=== PATIENT | female | born 1945 | race Two or more races ===

== ENCOUNTER 2023-11-12 06:11 | Emergency (ER) | payer OTHER, MEDICAID ==
[~2023-11-12] VITALS: Ht 157.5 cm; Wt 68.4 kg
[2023-11-12 08:14] VITALS: BP 141/57; PULSE 81; RESP 18; TEMP 97.3; O2SAT 98
== END 2023-11-12 08:17 | disposition home or self-care (01) ==
LOC: ER 06:11
DX: S00.83XA Contusion of other part of head, initial encounter (principal); I10 Essential (primary) hypertension; E11.9 Type 2 diabetes mellitus without complications; Z86.73 Personal history of transient ischemic attack (TIA), and cerebral infarction without residual deficits; W01.198A Fall on same level from slipping, tripping and stumbling with subsequent striking against other object, initial encounter; Y93.01 Activity, walking, marching and hiking; Y92.091 Bathroom in other non-institutional residence as the place of occurrence of the external cause; Y99.8 Other external cause status
CPT/HCPCS: 70450

== ENCOUNTER 2024-02-15 13:20 | Emergency (ER) | payer OTHER, MEDICAID ==
[~2024-02-15] VITALS: Ht 160 cm; Wt 69.7 kg
[2024-02-15 14:05] VITALS: BP 162/71; RESP 18; O2SAT 95
[2024-02-15 14:18] LABS: Basophils # (auto) 0 10 ^3/uL (0-0.2); Basophils % (auto) 0.4 % (0.0-2.0); Eosinophils # (auto) 0.1 10 ^3/uL (0-0.8); Eosinophils % (auto) 0.9 % (0.0-7.0); Hematocrit 44.1 % (36.0-46.0); Hemoglobin 15.2 g/dL (12.2-16.2); Lymphocytes # (auto) 1.8 10 ^3/uL (0.4-5.4); Lymphocytes % (auto) 22.1 % (10.0-50.0); Mean Corpuscular Hemoglobin 32.2 pg (28.0-32.0); Mean Corpuscular Hgb Conc. 34.5 g/dL (32.0-36.0); Mean Corpuscular Volume 93.3 fL (80.0-100.0); Monocytes # (auto) 0.4 10 ^3/uL (0-1.3); Monocytes % (auto) 5.5 % (0.0-12.0); Neutrophils # (auto) 5.7 10 ^3/uL (1.6-8.6); Neutrophils % (auto) 71.1 % (37.0-80.0); Red Blood Cells 4.72 10^6/uL (4.0-5.20); Red Cell Distribution Width 13.1 % (11.8-14.3)
[2024-02-15 14:23] VITALS: PULSE 82
[2024-02-15 14:30] LABS: Chloride 102 mmol/L (98-107); Potassium 4.3 mmol/L (3.5-5.1); Sodium 137 mmol/L (136-145)
[2024-02-15 14:31] LABS: Anion Gap 7 (5-15); Calcium 9.6 mg/dL (8.7-10.4); Carbon Dioxide 28 mmol/L (20-30)
[2024-02-15 14:36] LABS: BUN/Creatinine Ratio 12.2 (10.0-20.0); Blood Urea Nitrogen 10 mg/dL (9-23); Glucose 170 mg/dL (74-106)
[2024-02-15] MEDS ORDERED: MECL25CH85 PO (15:37)
[2024-02-15] MEDS: MECLIZINE HCL 25 MG TAB PO ONE (15:45)
== END 2024-02-15 19:05 | disposition home or self-care (01) ==
LOC: ER 13:20
DX: R42 Dizziness and giddiness (principal); E11.9 Type 2 diabetes mellitus without complications; E78.5 Hyperlipidemia, unspecified; I10 Essential (primary) hypertension; E07.9 Disorder of thyroid, unspecified; Z86.73 Personal history of transient ischemic attack (TIA), and cerebral infarction without residual deficits
CPT/HCPCS: 36415; 70450; 80048; 82962; 85025; 93005; 99284; J8597

== ENCOUNTER 2025-09-24 18:28 | Emergency (ER) | payer OTHER, MEDICAID ==
[~2025-09-24] VITALS: Ht 152.4 cm; Wt 63.5 kg
[~2025-09-24 18:28] MED LIST: MECL25CH85 PO
[2025-09-24 19:07] LABS: Hematocrit 44.5 % (36.0-46.0); Hemoglobin 15.3 g/dL (12.2-16.2); Mean Corpuscular Hemoglobin 32.0 pg (28.0-32.0); Mean Corpuscular Volume 93.1 fL (80.0-100.0); Nucleated Red Blood Cells % 0.2 %
[2025-09-24 19:21] LABS: Alanine Aminotransferase 16 U/L (7-40); Albumin 4.7 g/dL (3.2-4.8); Alkaline Phosphatase 112 U/L (46-116); Anion Gap 11 (5-15); BUN/Creatinine Ratio 19.8 (10.0-20.0); Bilirubin, Total 0.5 mg/dL (0.2-1.0); Blood Urea Nitrogen 16 mg/dL (9-23); Calcium 10.2 mg/dL (8.7-10.4); Carbon Dioxide 27 mmol/L (20-31); Chloride 102 mmol/L (98-107); Magnesium 1.9 mg/dL (1.6-2.6); Potassium 4.1 mmol/L (3.5-5.1); Sodium 140 mmol/L (136-145); Total Protein 7.3 g/dL (5.7-8.2)
[2025-09-24 19:23] LABS: Glucose 236 mg/dL (74-106)
--- NOTE | 2025-09-24 19:35 | DVH ---
Procedure: CT HEAD WITHOUT CONTRAST Study Date and Requested Time: 09/24/2025 06:59 PM History: RO STROKE Comparison: CT HEAD WITHOUT CONTRAST on DOS: 02/15/24, CT HEAD WITHOUT CONTRAST on DOS: 11/12/23 Dose: CTDI: 49.28 mGy DLP: 1.71 mGycm Technique: Multiplanar images obtained through the brain without intravenous contrast. Findings: Mild diffuse brain atrophy. Mild chronic small-vessel ischemic changes. Left occipital lobe encephalomalacia. Left high convexity frontal lobe hypodensity which may represent an area of infarct of unknown chronicity. Bilateral cerebellar chronic lacunar infarcts. No hemorrhages, masses, mass effect, midline shift, herniation or cytotoxic edema following a large vascular territory. No intra-axial or extra-axial fluid collections. No evidence of hydrocephalus. The basal cisterns are patent. The pituitary gland, sella and parasellar regions are unremarkable. The cerebellar tonsils are in normal position. The cerebellum is otherwise unremarkable. Bilateral lens replacement. Otherwise, orbits and globes are unremarkable. The paranasal sinuses and mastoids are clear. There are no worrisome calvarial lesions. Impression: Left high convexity frontal lobe areas of hypodensity which may represent an area of infarct of unknown chronicity. MRI is recommended for further evaluation. Left occipital lobe and bilateral cerebellar areas of chronic infarct. Critical Result: Stroke Alert Findings discussed with Dr. Dailey at 09/24/2025 07:33 PM, and acknowledged receipt and understanding of the findings. ..
--- NOTE | 2025-09-24 19:38 | DVH ---
CHEST RADIOGRAPH Indication: PROTOCOL Technique: Single frontal view of the chest was obtained. Comparison: None Findings: No focal consolidation. No significant pleural effusion. No pneumothorax. Nonenlarged cardiomediastinal silhouette. IMPRESSION: No acute pulmonary process.
--- NOTE | 2025-09-24 20:11 | ED.PDOC ---
HPI (NEURO) HPI Comments HPI: This is a 80 year old female BIB daughter presenting to the ED with chief complaint of difficulty thinking. Patient reports that she has been finding it to be difficult to find her words since Wednesday. Patient relays that she has no weakness and is able to ambulate well with a walker on her own. Patient states she had a CVA 20 years ago. Patient denies any numbness, weakness, tingling, chest pain, SOB, headache, N/V, or syncope. Past Medical History: CVA x 20 years ago, HTN, DM, HLD Past Surgical History: Denies Social History: Denies smoking, ETOH, or drug use Medications: Reviewed Allergies: NKDA CASE: DIFFICULTY WITH her words SINCE WEDNESDAY, AMBULATES WITH A WALKER NEURO INTACT, AMBULATING WITH A WALKER, NORMAL EXAM, NO PRONATOR DRIFT, HPI: Poor Historian. REVIEW OF SYSTEMS: CONSTITUTIONAL: Denies acute: fever, diaphoresis, chills, generalized weakness. HEAD: Denies acute: headache, photophobia Eyes: Denies acute: Double vision, vision loss, eye pain, eye discharge. EARS: Denies acute: tinnitus, hearing loss, ear discharge, ear pain, THROAT: Denies acute: sore throat, swelling, difficulty swallowing , pain with swallowing, change in voice. NECK: Denies acute: neck pain, neck swelling, stiff neck. HEART: Denies acute : chest pain, palpitations, LUNGS: Denies acute: SOB, wheezing, cough, hemoptysis ABDOMEN: Denies acute: abdominal pain, Nausea, Vomiting, diarrhea, melena , hematemesis, hematochezia SKIN: Denies acute: rash, redness, lesions, itchiness. EXTREMITIES: Denies acute: calf pain, numbness, tingling, weakness, denies pain in extremity. Denies acute: Low back pain. Neuro: Denies acute: focal neurological deficit, motor or sensory focal neurological deficit, tremors, seizure like activity, confusion, dizziness, change in mental status, loss of bowel or bladder function, cauda equina like symptoms. : Denies acute: dysuria, hematuria, flank pain, increase in urinary frequency. PSYCH: Denies acute: hallucination, suicidal ideation, homicidal ideation. FEMALE: Denies acute: abnormal vaginal bleeding, foul odor, unusual discharge. PHYSICAL EXAM: General: ---mild-----acute distress, awake and alert. Head: normocephalic, atraumatic. No raccoon's eyes, no mccrary sign. Neck: supple, trachea is midline, no swelling. Throat: Normal phonation. Eyes:, no erythema, no purulent discharge, no proptosis, no icterus. Heart: regular rate, regular rhythm, no significant murmur appreciated. Lungs: no apparent respiratory distress, Able to speak in full sentences. No wheezing, no rhonchi, no crackles. No stridors Clear to auscultation bilaterally. Abdomen: non tender to palpation, non distended, soft, no guarding, no rebound, + bowel sounds. Neuro: Awake, Alert, oriented to name, self, situation, follows commands GCS=15. Speech is normal. Skin: no petechia, no purpura, no cyanosis, non-pale, not jaundice. Lower extremities: --no - Pitting edema no deformity, no focal swelling, no calf TTP. Makes eye contact. moves all four extremities. Face: no apparent facial droop. Ambulating in the ED with a walker Stroke: finger to nose cerebellar testing is intact. No pronator drift. Symmetrical terminal clerk muscle strength b/l PERRLA, EOM-I CN 2-12 are grossly intact, No nystagmus. No nuchal rigidity, Kernig's sign, Brudzinski's sign, no meningeal signs. ED COURSE: DISCLAIMER: This medical document was created using an electronic medical record system with voice recognition software and computerized dictation system. Although this document has been carefully reviewed, there might still be some phonetic and typographical errors. Occasional wrong-word or "sound-alike" substitutions may have occurred due to the inherent limitations of voice recognition software. These areas are purely typographical due to imperfections of the software programs and do not reflect any compromise in the patient's medical care. Please read the chart carefully and recognize, using context, where these substitutions have occurred. Chief Complaint: Headache Time Seen by MD: 20:10 Reviewed Notes: Medications, Allergies Information Source: Patient, Relative (Child) Mode of Arrival: Ambulatory EKG EKG : Pulse Rate (adult): 59 Cardiac Rhythm: NSR Was a procedure done? Was a procedure done?: No Differential Diagnosis (SZ) Seizure: N/A CVA: Singh's Palsy, CVA, Delirium Tremens, DKA, Drug Overdose, Electrolyte Imbalance, Encephalopathy, Hypoglycemia, Hypoxemia, Mass Lesion, Respiratory Failure, SAH, TIA, Other (Stroke: DDX include TIA, TGA, CVA, intracranial bleed/mass/infection, cerebellar ischemia/infarct, carotid stenosis, lacunar infarct, vertebral/carotid artery dissection,, vertebrobasillary insufficiency, BPV, encephalopathy, electrolyte abnormality, thyroid disease, hydrocephalus, [place] palsy, multiple sclerosis, hypoglycemia, drug toxicity, cardiac arrhythmia, todds paralysis, seizure.) X-Ray, Labs, Meds, VS Vital Signs Date Time Temp Pulse Resp B/P (MAP) Pulse Ox O2 Delivery O2 Flow Rate FiO2 09/25/25 00:06 97.7 78 16 140/78 (98) 98 97.7 09/25/25 00:03 16 140/78 (98) 95 09/24/25 22:02 59 09/24/25 21:52 59 09/24/25 20:32 75 16 130/55 (80) 96 09/24/25 20:29 Room Air* 0 21 09/24/25 18:34 97.9 84 16 153/67 95 97.9 Lab Test 09/24/25 19:46 09/24/25 18:52 Range/Units Troponin I High Sensitivity 12 13 </=34 ng/L White Blood Count 7.2 4.4-10.8 10^3/uL Red Blood Count 4.78 4.0-5.20 10^6/uL Hemoglobin 15.3 12.2-16.2 g/dL Hematocrit 44.5 36.0-46.0 % Mean Corpuscular Volume 93.1 80.0-100.0 fL Mean Corpuscular Hemoglobin 32.0 28.0-32.0 pg Mean Corpuscular Hemoglobin Concent 34.4 32.0-36.0 g/dL Red Cell Distribution Width 13.6 11.8-14.3 % Platelet Count 228 140-450 10^3/uL Mean Platelet Volume 8.6 6.9-10.8 fL Neutrophils (%) (Auto) 64.8 37.0-80.0 % Lymphocytes (%) (Auto) 25.3 10.0-50.0 % Monocytes (%) (Auto) 8.3 0.0-12.0 % Eosinophils (%) (Auto) 1.0 0.0-7.0 % Basophils (%) (Auto) 0.6 0.0-2.0 % Neutrophils # (Auto) 4.7 1.6-8.6 10 ^3/uL Lymphocytes # (Auto) 1.8 0.4-5.4 10 ^3/uL Monocytes # (Auto) 0.6 0-1.3 10 ^3/uL Eosinophils # (Auto) 0.1 0-0.8 10 ^3/uL Basophils # (Auto) 0 0-0.2 10 ^3/uL Nucleated Red Blood Cells 0.2 % Sodium Level 140 136-145 mmol/L Potassium Level 4.1 3.5-5.1 mmol/L Chloride Level 102 98-107 mmol/L Carbon Dioxide Level 27 20-31 mmol/L Anion Gap 11 5-15 Blood Urea Nitrogen 16 9-23 mg/dL Creatinine 0.81 0.550-1.02 mg/dL Glomerular Filtration Rate Calc 74 >90 mL/min BUN/Creatinine Ratio 19.8 10.0-20.0 Serum Glucose 236 H 74-106 mg/dL Calcium Level 10.2 8.7-10.4 mg/dL Magnesium Level 1.9 1.6-2.6 mg/dL Total Bilirubin 0.5 0.2-1.0 mg/dL Aspartate Amino Transferase (AST) 13 13-40 U/L Alanine Aminotransferase (ALT) 16 7-40 U/L Alkaline Phosphatase 112 46-116 U/L Total Protein 7.3 5.7-8.2 g/dL Albumin 4.7 3.2-4.8 g/dL Current Medications Medications (Trade) Dose Ordered Sig/Harry Route Start Time Stop Time Status Last Admin Aspirin (Ecotrin Enteric Coated Tablet) 325 mg ONCE ONCE PO 09/24/25 19:45 09/24/25 19:46 DC 09/24/25 20:29 X-Ray, Labs, Meds, VS Comment [address] [address] Ph: [phone] DIAGNOSTIC IMAGING Diagnostic Imaging Report : [id number] Signed PATIENT: OZZY WILLOUGHBY ACCT: [id number] UNIT: [id number] : 1945 LOC: ER ROOM / BED: / AGE / SEX: 80 / F ADM STATUS: REG ER SERVICE 39 ORDERING PHYSICIAN: SELENE ARMANDO DO PROCEDURE(s): HWOCT - HEAD WITHOUT CONTRAST REASON: RO STROKE ORDER NUMBER(s): [id number], ACCESSION NUMBER(s): [id number] Procedure: CT HEAD WITHOUT CONTRAST Study Date and Requested Time: 09/24/2025 06:59 PM History: RO STROKE Comparison: CT HEAD WITHOUT CONTRAST on DOS: 02/15/24, CT HEAD WITHOUT CONTRAST on DOS: 11/12/23 Dose: CTDI: 49.28 mGy DLP: 1.71 mGycm Technique: Multiplanar images obtained through the brain without intravenous contrast. Findings: Mild diffuse brain atrophy. Mild chronic small-vessel ischemic changes. Left occipital lobe encephalomalacia. Left high convexity frontal lobe hypodensity which may represent an area of infarct of unknown chronicity. Bilateral cerebellar chronic lacunar infarcts. No hemorrhages, masses, mass effect, midline shift, herniation or cytotoxic edema following a large vascular territory. No intra-axial or extra-axial fluid collections. No evidence of hydrocephalus. The basal cisterns are patent. The pituitary gland, sella and parasellar regions are unremarkable. The cerebellar tonsils are in normal position. The cerebellum is otherwise unremarkable. Bilateral lens replacement. Otherwise, orbits and globes are unremarkable. The paranasal sinuses and mastoids are clear. There are no worrisome calvarial lesions. Impression: Left high convexity frontal lobe areas of hypodensity which may represent an area of infarct of unknown chronicity. MRI is recommended for further evaluation. Left occipital lobe and bilateral cerebellar areas of chronic infarct. Critical Result: Stroke Alert Findings discussed with Dr. Armando at 09/24/2025 07:33 PM, and acknowledged receipt and understanding of the findings. .. ATED BY: MARIELLA GUZMÁN DO DICTATED DATE/TIME: 09/24/251932 SIGNED BY: MARIELLA GUZMÁN DO SIGNED DATE/TIME: 09/24/251932 CC: [place] [address] Ph: [phone] DIAGNOSTIC IMAGING Diagnostic Imaging Report : [id number] Signed PATIENT: OZZY WILLOUGHBY ACCT: [id number] UNIT: [id number] : 1945 LOC: ER ROOM / BED: / AGE / SEX: 80 / F ADM STATUS: REG ER SERVICE 39 ORDERING PHYSICIAN: SELENE ARMANDO DO PROCEDURE(s): CXRP - CHEST PORTABLE REASON: PROTOCOL ORDER NUMBER(s): [id number], ACCESSION NUMBER(s): [id number] CHEST RADIOGRAPH Indication: PROTOCOL Technique: Single frontal view of the chest was obtained. Comparison: None Findings: No focal consolidation. No significant pleural effusion. No pneumothorax. Nonenlarged cardiomediastinal silhouette. IMPRESSION: No acute pulmonary process. ATED BY: SOMMER LUBIN MD DICTATED DATE/TIME: 09/24/251934 SIGNED BY: SOMMER LUBIN MD SIGNED DATE/TIME: 09/24/251934 CC: Time of 1ST Reevaluation: 21:09 Reevaluation 1ST: Unchanged Time of 2ND Reevaluation: 21:36 (THE CASE WAS DISCUSSED WITH THE [facility] ADMITTING TEAM (HPI, PHYSICAL EXAM, LABS AND DIAGNOSTIC TESTS THAT WERE AVAILABLE AT THE TIME OF DISPOSITION, ED COURSE, TREATMENT PLAN) ON THE PHONE. THEY AGREED TO TRANSFER THE PATIENT TO THEIR SERVICE BY [facility] FOR FURTHER BERNY LUATION AND TREATMENT. DR. GAMINO AUTHORIZATION NUMBER IS--[id number]) Patient Education/Counseling: Diagnosis, Treatment Family Education/Counseling: Diagnosis, Treatment Comments MDM: patient presented with the above HPI.-stroke-like symptoms-----workup was initiated. patient was found with the above mentioned diagnosis. the following medications were ordered: please refer to order lists of meds and tests obtained by myself Dr. Armando. Patient ED course and VS have been stabilized. Patient has been reassessed in the ED and remained in a stable condition. Pertinent incidental findings were discussed with the patient and/or family. Patient/family voices understanding and is agreeable with plan. Patient has been observed in the ED adequate length of time to insure improvement/stability. Escalation of care considered: Consideration of escalation to observation or admission Patient is outside the window for thrombolytics. Patient was transferred per insurance requirement to the medicine team for further evaluation and treatment of their presentation. All the reports of any imaging studies that were ordered by myself were reviewed by myself. Departure 1 Departure Time of Disposition: 20:20 Impression: Primary Impression: Stroke Disposition: 02 SHORT TERM HOSPITAL Admit to: Tele Condition: Guarded Discharged With: Self Critical Care Note Critical Care Time?: Yes (45 min-critical care time only) Critical care comment: Due to a high probability of clinically significant, life threatening deterioration, the patient required my highest level of preparedness to intervene emergently and I personally spent this critical care time directly and personally managing the patient. This critical care time included obtaining a history; examining the patient; pulse oximetry; ordering and review of studies; arranging urgent treatment with development of a management plan; evaluation of patient's response to treatment; frequent reassessment; and, discussions with other providers. This critical care time was performed to assess and manage the high probability of imminent, life-threatening deterioration that could result in multi-organ failure. It was exclusive of separately billable procedures and treating other patients and teaching time. Please see my other sections and the rest of the note for further information on patient assessment and treatment. I personally scribed for SELENE ARMANDO DO ([email or web address]) on 09/24/25 at 20:11. Electronically submitted by Reji Allen ([email or web address]). I personally scribed for SELENE ARMANDO DO ([email or web address]) on 09/24/25 at 21:39. Electronically submitted by Reji Allen ([email or web address]). I personally scribed for SELENE ARMANDO DO ([email or web address]) on 09/24/25 at 22:02. Electronically submitted by Reji Allen ([email or web address]). SELENE ARMANDO DO Sep 24, 2025 20:11
[2025-09-24] MEDS: ASPirin-EC 325mg tab PO ONE (20:29)
--- NOTE | 2025-09-24 21:56 | ECG ---
[facility] Test Date: 2025-09-24 Test Time: 21:52:52 Pat Name: OZZY WILLOUGHBY Department: ED Room: Gender: F Dredge Mate: : 1945 Requested By: SELENE ARMANDO Order Number: [id number] Reading MD: Mike Baird Measurements Intervals [place] Rate: 59 P: -19 ME: 169 QRS: -30 QRSD: 81 T: 46 QT: 428 QTc: 424 Interpretive Statements Sinus rhythm Atrial premature complex Left axis deviation Low voltage, precordial leads Electronically Signed On 09-27-2025 19:24:40 PST by Mike Baird Please click the below link to view image of tracing.
[2025-09-25 00:06] VITALS: BP 140/78; PULSE 78; RESP 16; TEMP 97.7; O2SAT 98
== END 2025-09-25 00:20 | disposition short-term general hospital (02) ==
LOC: ER 18:28
DX: I60.9 Nontraumatic subarachnoid hemorrhage, unspecified (principal); E78.5 Hyperlipidemia, unspecified; I10 Essential (primary) hypertension; E11.9 Type 2 diabetes mellitus without complications; Z86.73 Personal history of transient ischemic attack (TIA), and cerebral infarction without residual deficits
CPT/HCPCS: 36415; 70450; 71045; 80053; 83735; 84484; 85025; 93005; 99291